=== PATIENT | female | born 1995 | race Caucasian/White ===

== ENCOUNTER 2018-02-18 09:04 | Emergency (ER) | payer BC ==
[~2018-02-18] VITALS: Ht 175.3 cm; Wt 81.8 kg
[2018-02-18 09:14] VITALS: BP 108/97
[2018-02-18] MEDS ORDERED: BIRTH CONTROL PO (09:20)
[2018-02-18] MEDS ORDERED: BACTRIM DS 8001 TAB PO (10:12)
[2018-02-18 10:18] VITALS: PULSE 81; TEMP 98.3
== END 2018-02-18 10:19 | disposition home or self-care (01) ==
LOC: COL.ER 09:04
DX: N76.4 Abscess of vulva (principal); F41.9 Anxiety disorder, unspecified; Z90.721 Acquired absence of ovaries, unilateral; Z86.14 Personal history of Methicillin resistant Staphylococcus aureus infection
CPT/HCPCS: J1170